=== PATIENT | female | born 1990 | race Asian ===

== ENCOUNTER 2025-02-28 20:47 | Inpatient (IN) ==
[2025-02-28] MEDS ORDERED: LIDOCAINE 1% LOCAL 20 ML VIAL INFIL PRN (21:43)
[2025-02-28] MEDS ORDERED: OXYTOCIN 30 UNITS/NSS 30 UNITS/500 ML BAG IV PRN (21:43)
--- NOTE | 2025-02-28 21:47 | Labor Progress Brief Note ---
Date of Service February 28, 2025 Subjective Back pain beginning 0630am, ROM at 1500pm, presented to L&D after calling in at 1930 and being advised that she needed in-person evaluation. Grossly ROM'ed for clear per RN. Assessment & Plan (1) Normal labor: Plan: Patient with ROM and 5cm. Will augment with pitocin, epidural on request. Patient and FOB counseled about low lying placenta, at 1.7cm can opt to trial labor, especially given 5cm already and no VB would be very reasonable to proceed. They do have the option of an immediate if they prefer. However, if bleeding were to begin or distress occur during labor, changing mode of delivery remains possible at that point. They accept trial of labor. Physical Exam Genitourinary: /-1 Vtx FHT Cat 1 [place] Q2m Results & Data Vital Signs (Past 12 Hours) Vital Signs Temp Pulse Resp BP 02/28/25 21:15 98.1 F 18 02/28/25 21:10 116 H 120/85 Coding Level of Care Code None Diagnoses Normal labor O80; Z37.9
[2025-02-28] MEDS: LACTATED RINGER'S 1,000 ML IV PRN (21:58)
[2025-02-28 22:20] LABS: Hematocrit (blood only) 37.6 % (37.0-47.0); Hemoglobin 12.7 g/dl (12.0-16.0); Mean Corpuscular Hemoglobin 28.7 pg (25.0-34.0); Mean Corpuscular Volume 84.9 fL (80.0-100.0); Platelet Count 236 K/uL (130-400); RDW Standard Deviation 41.5 fL (36.4-46.3); Red Blood Count 4.43 M/uL (4.20-5.40); White Blood Count 11.16 K/ul (4.8-10.8)
[2025-02-28] MEDS: OXYTOCIN 30 UNITS/NSS 30 UNITS/500 ML BAG IV PRN (22:29)
[2025-03-01] MEDS: BUPIVACAINE 0.25% PF 30 ML VIAL ONE (00:22)
[2025-03-01] MEDS: SODIUM CHLORIDE 0.9% PF INJ 10 ML VIAL ONE ×2 (00:25→00:28)
[2025-03-01] MEDS: fentANYL 2 MCG/ML BUPIVacaine 0.125%-NSS 100ML BAG ONE (00:25)
[2025-03-01] MEDS: LIDOCAINE 2%/EPINEPHRINE 1:200,000 20 ML PF ONE (00:27)
[2025-03-01] MEDS ORDERED: ONDANSETRON INJ 2 MG/ML 2 ML VIAL IV PRN (00:35)
[2025-03-01] MEDS ORDERED: NALOXONE HCL 0.4 MG/1 ML VIAL/CARP IV PRN (00:35)
[2025-03-01] MEDS ORDERED: LIDOCAINE 2% MPF LOCAL 5 ML VIAL EPI PRN (00:35)
[2025-03-01] MEDS ORDERED: SODIUM CHLORIDE 0.9% PF INJ 10 ML VIAL EPI PRN (00:35)
[2025-03-01] MEDS ORDERED: NALBUPHINE HCL INJ 10 MG/ML AMP IV PRN (00:35)
[2025-03-01] MEDS ORDERED: BUPIVACAINE 0.25% PF 30 ML VIAL EPI STA (00:35)
[2025-03-01] MEDS ORDERED: SODIUM CHLORIDE 0.9% PF INJ 10 ML VIAL EPI STA (00:35)
[2025-03-01] MEDS ORDERED: LIDOCAINE 2%/EPINEPHRINE 1:200,000 20 ML PF EPI STA (00:35)
[2025-03-01] MEDS ORDERED: NALOXONE HCL 1 MG in SODIUM CHLORIDE 0.9% 1,000 ML IV PRN (00:35)
[2025-03-01] MEDS ORDERED: diphenhydrAMINE 50 MG/ML VIAL IV PRN (00:35)
[2025-03-01] MEDS ORDERED: PROMETHAZINE 6.25 MG/50.25 ML BAG IV PRN (00:35)
[2025-03-01] MEDS ORDERED: fentANYL 2 MCG/ML BUPIVacaine 0.125%-NSS 100ML BAG EPI PRN (00:35)
[2025-03-01] MEDS ORDERED: BUPIVACAINE 0.25% PF 30 ML VIAL EPI PRN (00:35)
[2025-03-01] MEDS ORDERED: ROPIVACAINE 0.5% PF 5 MG/ML 20 ML VIAL EPI PRN (00:35)
--- NOTE | 2025-03-01 00:35 | Anesthesiology Consultation ---
Date of Service March 01, 2025 Assessment & Plan Chart Review Chart Review: Acceptable Risk for Surgery and Patient NOT seen in Pre Admission Testing Consults Requested none ASA ASA2 Proposed Anesthesia Anesthesia Type: Labor Epidural Risk / Benefits Reviewed With: PT / POA / Parent / Guardian, Accepts Plan and Informed Consent Obtained History Height/Weight Height: 5 ft 4 in Weight: 77.111 kg Allergies Allergy/AdvReac Type Severity Reaction Status Date / Time No Known Allergies Allergy Verified 02/28/25 21:13 Medications Home Medications Medication Instructions Recorded Confirmed Last Taken vits no.130-ferrous fum 1 tab PO DAILY 02/28/25 02/28/25 02/27/25 27 mg iron-folic acid 800 mcg tablet ( Vitamin) Active Medications Generic Name Dose Route Start Last Admin Trade Name Freq PRN Reason Stop Dose Admin Oxytocin 30 units in 500 mls @ 6 mls/hr 02/28/25 21:43 02/28/25 23:30 Pitocin 30 Units/Nss IV 03/02/25 21:42 0.36 units/hr .Q24H PRN 6 mls/hr Labor Induction/Augmentation Titration Protocol 0.36 UNITS/HR Lactated Ringer's 1,000 mls @ 125 mls/hr 02/28/25 21:43 03/01/25 00:05 Lr IV 03/02/25 21:42 125 mls/hr .Q8H PRN Infusion L&D Protocol Protocol Past Medical History Medical History (Updated 02/28/25 @ 21:45 by Zoë Moffett MD) AMA (advanced maternal age) primigravida 35+ Exercise / Class Metabolic Activity II 4-5 Yardwork/Stairs/Walk up hill Past Family History Family History (Updated 08/31/24 @ 10:56 by Jennifer Pina) Mother Diabetes Hypertension Past Surgical History Surgical History S/P wisdom tooth extraction Past Anesthesia History No Hx of Anesthesia Complications and No Family Hx of Anesthesia Complications History of PONV No Hx of PONV and No Hx of Motion Sickness Social History Smoking Status: Never smoker Do You Dip or Chew Tobacco: No Hx Alcohol Use: No Hx Substance Use: No substance use type: does not use Physical Exam Vital Signs Last Vital Signs Temp 36.7 C 02/28/25 22:37 Pulse 114 H 03/01/25 00:34 Resp 18 02/28/25 23:30 BP 99/59 L 03/01/25 00:34 Pulse Ox 100 03/01/25 00:32 ENMT Mouth: no dentition abnormality Thyromental Distance: > or= 3.5 Finger Breadths Mallampati Class: II Neck normal visual inspection Respiratory normal respiratory effort Auscultation: lungs clear to auscultation bilaterally Cardiovascular Rate/Rhythm: regular rate and regular rhythm Psychiatric Orientation: alert Testing Laboratory Results 02/28/25 22:06
--- NOTE | 2025-03-01 01:15 | Delivery Summary ---
Vaginal Delivery Summary Date of Service March 01, 2025 Vaginal Delivery Summary DIAGNOSES: 1. Perez intrauterine at 37w2d gestation. 2. Spontaneous onset of labor. 3. Group B Streptococcus Neg. PROCEDURE: Spontaneous vaginal delivery without laceration. SURGEON: Zoë Moffett MD. OVERHEAD GARAGE DOOR HANGER: None. QUANTITATIVE BLOOD LOSS: 102 mL. COMPLICATIONS: None. PLACENTA: Spontaneous and intact with a 3-vessel cord. DISPOSITION: Stable to labor and delivery. DESCRIPTION: The patient pushed well and brought the head to in OA position. The 's head was allowed to deliver with contraction force and no further active pushing, with the perineum protected during this time. There was no nuchal cord. The right shoulder was anterior. The shoulders and body delivered without any difficulty, and the was placed on the maternal abdomen. It was vigorous and moving all extremities, and making respiratory efforts. The cord was doubly clamped by the MD and then cut by the FOB. The placenta delivered spontaneously and was noted to be intact and with a 3VC. The cervix, vagina and perineum were examined and were found to be without defect requiring repair. The fundus was firm and lochia minimal immediately after delivery. [facility] [place] Vaginal Delivery Charge Vaginal Delivery Codes: 14653 global code for the antepartum, delivery, and post-
[2025-03-01] MEDS ORDERED: DIPHTHER/TETAN/PERTUS Vaccine (Tdap, Adol/Adult) 0.5mL IM ONE (03:29)
[2025-03-01] MEDS ORDERED: OXYTOCIN 30 UNITS/NSS 30 UNITS/500 ML BAG IV PRN (03:29)
[2025-03-01] MEDS ORDERED: ACETAMINOPHEN 325 MG TAB PO PRN (03:29)
[2025-03-01] MEDS ORDERED: BENZOCAINE 20% SPRY 85 APPLN/85 GM CAN EXT PRN (03:29)
[2025-03-01] MEDS ORDERED: HYDROCORTISONE ACETATE 25 MG SUPP PR PRN (03:29)
[2025-03-01] MEDS ORDERED: IBUPROFEN 600 MG TAB PO PRN (03:29)
[2025-03-01] MEDS: PRENATAL VITAMIN 1 TAB PO SCH (08:10)
[2025-03-01] MEDS: DOCUSATE SODIUM 100 MG CAP PO SCH (08:10)
--- NOTE | 2025-03-01 15:34 | Anesthesia Procedure Note ---
Date of Service March 01, 2025 Anesthesia Post Epidural Note Vital Signs Vital Signs: Temp Pulse Resp BP Pulse Ox O2 Del Method 37.1 C 89 18 124/79 95 Room Air 03/01/25 11:58 03/01/25 11:58 03/01/25 11:58 03/01/25 11:58 03/01/25 11:58 03/01/25 11:58 Pain Intensity Perineal: Pain Intensity: 0 Notes Mental Status: alert / awake / arousable and participated in evaluation Nausea / Vomiting: adequately controlled Pain: adequately controlled Airway Patency, RR, SpO2: stable & adequate BP & HR: stable & adequate Hydration State: stable & adequate Neuraxial Anesthesia: was administered and sensory block resolved Anesthetic Complications: no major complications apparent and Pt Satisfied with anesthetic care Epidural: Removed without complications and With tip intact
[2025-03-02 00:02] VITALS: O2SAT 97
[2025-03-02 06:20] LABS: Hematocrit (blood only) 35.9 % (37.0-47.0); Hemoglobin 11.9 g/dl (12.0-16.0); Mean Corpuscular Hemoglobin 28.5 pg (25.0-34.0); Mean Corpuscular Volume 85.9 fL (80.0-100.0); Platelet Count 212 K/uL (130-400); RDW Standard Deviation 41.6 fL (36.4-46.3); Red Blood Count 4.18 M/uL (4.20-5.40); White Blood Count 11.98 K/ul (4.8-10.8)
--- NOTE | 2025-03-02 06:27 | Obstetrical Progress Note ---
Date of Service <Janessa Chin DO - Last Filed: 03/02/25 07:10> March 02, 2025 Assessment & Plan <Janessa Chin DO - Last Filed: 03/02/25 07:10> (1) care following vaginal delivery: Plan 34 yo post- day 2 s/p . Feels well today. Vital signs stable Continue post- care Encourage ambulation and Pain controlled with ibuprofen Hgb stable Discharge home today, follow up with Dr. Moffett in 6 weeks. <Tanya Benz MD, FACOG - Last Filed: 03/02/25 07:30> (1) care following vaginal delivery: Subjective <Janessa Chin DO - Last Filed: 03/02/25 07:10> 34 yo post- day 2 s/p . Ambulation: ambulating normally Voiding: no voiding problems Passing Gas:: Yes Passing Stool:: Yes Diet Tolerance:: regular diet Lochia:: Small Feeding Type:: breast and bottle feeding Current Pain Level: 0/10 Resting comfortably this AM in NAD. Denies LAUREN, CP, SOB, N/V/D, LE pain/swelling. Review of Systems All systems reviewed & are unremarkable except as noted in HPI & below Physical Exam <Janessa Chin DO - Last Filed: 03/02/25 07:10> General: patient resting comfortably, NAD, non-toxic in appearance, AA&O x 4, answers questions appropriately. Skin: warm, dry, intact HEENT: NC/AT, anicteric sclera, conjunctiva without injection, moist mucus membranes. Heart: +S1/S2, regular, no m/r/g Lungs: equal air entry bilaterally, no rales/rhonchi/wheezes Abd: +BS, soft, NT/ND, uterine fundus firm at umbilicus Ext: warm, no clubbing/cyanosis or edema, Cristina's neg. Neuro: nonfocal, patient AA&O x 4, speech intact, no facial droop, moving all extremities on command. Results & Data <Janessa Chin DO - Last Filed: 03/02/25 07:10> Vital Signs (Past 12 Hours) Vital Signs Temp Pulse Resp BP Pulse Ox O2 Del Method 03/01/25 23:50 37.2 C 90 16 110/75 97 Room Air 03/01/25 20:28 37.1 C 84 18 124/72 98 Room Air Laboratory Results Blood Type O Positive 09/09/24 Antibody Screen NEGATIVE 09/09/24 Hgb 12.2 g/dl (12.0-16.0) 12/28/24 Hct 37.1 % (37.0-47.0) 12/28/24 MCV 81.7 fL (80.0-100.0) 09/09/24 Plt Count 272 K/uL (130-400) 09/09/24 Rubella IgG Antibody Immune (Immune) 09/09/24 Treponema pallidum Ab Negative (Negative) 12/28/24 Hep Bs Antigen Negative (Negative) 09/09/24 Hepatitis C Antibody Negative (Negative) 09/09/24 HIV 1&2 Ab/P24 Ag 4thGn Negative (Negative) 09/09/24 Glucose 1 Hr 50 gm 125 mg/dl (70-130) 12/28/24 Maternal Serum AFP 62.8 ng/mL 10/06/24 OB Optional Labs: Chlamydia trachomatis RNA Not Detected (NotDetected) 09/09/24 Neisseria gonorrhoeae RNA Not Detected (NotDetected) 09/09/24 Alpha Fetoprotein Triple Screen SEE NOTE 10/06/24 Supervising Physician <Tanya Benz MD, FACOG - Last Filed: 03/02/25 07:30> Co-Signing Physician Notes Resident Physician Supervision Note: I interviewed and examined the patient. Discussed with Dr. Finley and agree with findings and plan as documented in the note. Any exceptions or clarifications are listed here: Doing well. Meeting milestones, desires d/c. Instructions given. f/u in 6 weeks. Documented By: Tanya Benz MD, FACOG Resident Activity Tracking <Janessa Chin DO - Last Filed: 03/02/25 07:10> Resident Involvement: Resident Care Provided Care Provided: OB Delivery
[2025-03-02 10:23] VITALS: BP 108/75; PULSE 76; RESP 18; TEMP 98.1
== END 2025-03-02 15:40 | disposition home or self-care (01) | DRG 807 ==
LOC: OPB 20:47 → 4S1 20:53 → 4E2 03-01 03:50